=== PATIENT | male | born 1955 | race Caucasian/White ===

== ENCOUNTER 2022-02-28 07:34 | Emergency (ER) | payer BC ==
[~2022-02-28] VITALS: Ht 180.3 cm; Wt 93.9 kg
[2022-02-28 07:35] VITALS: BP_SYST 135
--- NOTE | 2022-02-28 07:35 | NUR ---
Patient triaged and placed in waiting room. VSS and patient appears in no acute distress at this time. Accompanied by SELF, awaiting available bed, and MD notified of need for MSE.
--- NOTE | 2022-02-28 07:45 | NUR ---
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 PT STATES HE IS WORRIED HE HAS A DVT. STATES PAIN IS ONLY A 1/10.
--- NOTE | 2022-02-28 08:01 | NUR ---
DR BE OUT TO TRIAGE ROOM TO EVALUATE PT.
[2022-02-28] MEDS ORDERED: cefTRIAXone 1 GM in LIDOCAINE 1%, 20 ML MDV 2.1 ML IM ONE (08:15)
--- NOTE | 2022-02-28 08:19 | NUR ---
BROUGHT BACK TO BED #7 AND TRIAGED. REPORT GIVEN TO HALEY
[2022-02-28] MEDS ORDERED: cefTRIAXone 1 GM VIAL ONE (08:24)
[2022-02-28] MEDS ORDERED: CEPH-548 PO (08:47)
[2022-02-28 08:52] VITALS: BP_SYST 135
--- NOTE | 2022-02-28 08:53 | NUR ---
Patient given written and verbal discharge instructions and verbalizes understanding. Dr. Fidel OROURKE MD discussed with patient the results and treatment provided. Patient in stable condition. ID arm band removed. Rx of Keflex given. Patient educated on pain management and to follow up with PMD. Pain Scale 0/10 Opportunity for questions provided and answered. Medication side effect fact sheet provided.
== END 2022-02-28 08:53 | disposition home or self-care (01) ==
LOC: SED 07:34
DX: L03.90 Cellulitis, unspecified (principal); I83.90 Asymptomatic varicose veins of unspecified lower extremity; E11.9 Type 2 diabetes mellitus without complications; I10 Essential (primary) hypertension
CPT/HCPCS: 96372; 99283; J0696